=== PATIENT | female | born 1940 | race Caucasian/White ===

== ENCOUNTER → 2016-08-20 | Outpatient (CLI) | payer OTHER, MEDICARE ==
--- NOTE | 2016-08-20 11:24 | MA ---
Screening Digital Mammogram With iCAD Analysis Clinical Indications: Routine screening. Technique: Standard cephalocaudal projections are obtained. Digital breast tomosynthesis was performe d in the MLO projection with reconstruction at 1.0 mm slice thickness and composite MLO views reconst ructed. This examination is processed by the iCAD computer aided detection system. Comparison: Mammographic studies May 2014, December 2012, November 2011, September 2009, August 2008 and breast ultrasound November 14, 2011. Breast density: Type B; Scattered fibroglandular densities. Findings: CAD was reviewed. Left breast nodular asymmetries have previously been demonstrated to repr esent simple cysts. No spiculated masses, suspicious calcifications or secondary signs of malignancy are seen. There has been no significant change in the appearance of either breast. Impression: Benign mammography, BI-RADS 2. Recommendation: Routine mammographic screening in one year as long as physical examination is negativ eCounts Include [address] [facility] will send a result letter to the patient. Negative mammography should not preclude additional workup of a clinically suspicious finding. The patient's information is entered into a reminder system with a target due date for her next mammo gram.
== END ==
LOC: FIMAGING 10:03
DX: Z12.31 Encounter for screening mammogram for malignant neoplasm of breast (principal)
CPT/HCPCS: G0202